=== PATIENT | female | born 2005 | race Caucasian/White ===

== ENCOUNTER 2024-01-24 12:57 | Emergency (ER) | payer OTHER ==
[~2024-01-24] VITALS: Ht 175.3 cm; Wt 90.7 kg
[2024-01-24 13:14] VITALS: BP 117/77; PULSE 100; RESP 21; TEMP 98.2; O2SAT 100
[2024-01-24 14:01] LABS: APPEARANCE,URINE CLEAR (CLEAR); BILIRUBIN,URINE NEGATIVE (NEGATIVE); BLOOD, URINE NEGATIVE (NEGATIVE); COLOR,URINE YELLOW (YELLOW); LEUKOCYTE ESTERASE ,URINE NEGATIVE (NEGATIVE); NITRITE, URINE NEGATIVE (NEGATIVE); PROTEIN,URINE NEGATIVE (NEGATIVE); UGLUCOSE 3+ (NEGATIVE); UROBILINOGEN,URINE 0.2 EU/dL (0.2 - 1)
[2024-01-24 14:02] LABS: BASOPHILS # (AUTO) 0.1 K/uL (0.00-0.22); BASOPHILS % (AUTO) 0.5 % (0.0-2.0); EOSINOPHILS # (AUTO) 0.1 K/uL (0-0.4); EOSINOPHILS % (AUTO) 0.7 % (0.0-4.0); HEMATOCRIT 39.7 % (36-48); HEMOGLOBIN 13.8 g/dL (12.0-16.0); LYMPHOCYTES # (AUTO) 2.8 K/uL (2.5-16.5); LYMPHOCYTES % (AUTO) 26.5 % (20.5-51.1); MEAN CORPUSCULAR HEMOGLOBIN 30 pg (27-31); MEAN CORPUSCULAR HGB CONC 35 g/dL (33-37); MEAN CORPUSCULAR VOLUME 86.7 fL (80-94); MONOCYTES # (AUTO) 0.3 K/uL (0.8-1.0); MONOCYTES % (AUTO) 3.3 % (1.7-9.3); NEUTROPHILS # (AUTO) 7.3 K/uL (1.8-7.7); PLATELET COUNT (AUTO) 339 K/uL (140-450); RED BLOOD CELL COUNT(AUTO) 4.58 MIL/uL (4.20-5.40); RED CELL DISTRIBUTION WIDTH 12.6 % (11.6-13.7); WHITE BLOOD COUNT (AUTO) 10.6 K/uL (4.5-11.0)
[2024-01-24 14:11] LABS: RBC,URINE 0-5 /HPF (0-5); WBC,URINE 0-5 /HPF (0-5)
[2024-01-24 14:12] LABS: AMPHETAMINE, URINE NEGATIVE ng/ml (NEG <=1000); BACTERIA,URINE 1+ /HPF (None Seen); BARBITURATE, URINE NEGATIVE ng/ml (NEG <=200); BENZODIAZEPINE, URINE NEGATIVE ng/mL (NEG <=200); CANNABINOID, URINE NEGATIVE ng/mL (NEG <=50); COCAINE, URINE NEGATIVE ng/mL (NEG <=300); OPIATE, URINE NEGATIVE ng/mL (NEG <=2000); PHENCYCLIDINE SCREEN,URINE NEGATIVE ng/mL (NEG <=25)
[2024-01-24 14:18] LABS: ANION GAP 14.5 (8-16); CALCIUM 9.5 mg/dL (8.5-10.1); CARBON DIOXIDE 25.6 mmol/L (21-32); POTASSIUM 4.1 mmol/L (3.5-5.1)
[2024-01-24 14:21] LABS: ALCOHOL, BLOOD < 3 mg/dL (<10)
[2024-01-24 14:33] LABS: ACETAMINOPHEN < 0.5 ug/ml (10-30); SALICYLATE < 2.8 mg/dL (2.8-20.0)
[2024-01-24] MEDS: NACL 0.9% 1,000 ML IV ONE (14:53)
[2024-01-24] MEDS: INSULIN REGULAR, HUMAN 100 UNIT/ML VIAL SUBQ ONE (16:03)
[2024-01-24 19:56] VITALS: O2SAT 99
[2024-01-24 22:10] VITALS: O2SAT 99
[2024-01-25 00:54] VITALS: O2SAT 99
[2024-01-25 04:07] VITALS: O2SAT 99
[2024-01-25 09:15] VITALS: O2SAT 99
[2024-01-25] MEDS: FLUoxetine 20 MG CAP PO SCH (09:39)
[2024-01-25] MEDS: INSULIN REGULAR, HUMAN 100 UNIT/ML VIAL SUBQ ONE (09:41)
[2024-01-25 13:12] VITALS: O2SAT 97
[2024-01-25 15:53] VITALS: BP 98/66; PULSE 88; RESP 20; TEMP 98.5; O2SAT 98
== END 2024-01-25 15:56 ==
LOC: MED 12:57
DX: R45.851 Suicidal ideations (principal); E11.65 Type 2 diabetes mellitus with hyperglycemia; F32.9 Major depressive disorder, single episode, unspecified; F41.9 Anxiety disorder, unspecified; F90.9 Attention-deficit hyperactivity disorder, unspecified type; E78.00 Pure hypercholesterolemia, unspecified
CPT/HCPCS: 36415; 80048; 80305; 81001; 81025; 82948; 85025; 96360; 96372; 99285; G0480; G0482; J1815; J7030